=== PATIENT | female | born 1985 | race Caucasian/White ===

== ENCOUNTER 2018-09-14 21:55 | Emergency (ER) | payer OTHER ==
[2018-09-14 22:01] VITALS: BP 124/76; PULSE 92; TEMP 98; BMI 24.7
--- NOTE | 2018-09-14 22:38 | PDOC ---
History of Present Illness - General Chief Complaint: Nausea/Vomiting Stated Complaint: NAUSEA/VOMITING Time Seen by Provider: 09/14/18 22:27 - History of Present Illness Initial Comments: 09/14/18 22:36 33-year-old female presents for evaluation of vomiting and rash 3 days no fever no dysuria no back pain no abdominal pain Past History - Past Medical History Allergies/Adverse Reactions: Allergies Allergy/AdvReac Type Severity Reaction Status Date / Time amoxicillin Allergy Verified 09/14/18 22:02 erythromycin base Allergy Verified 09/14/18 22:02 Penicillins Allergy Verified 09/14/18 22:02 Home Medications: Ambulatory Orders NK [No Known Home Medication] 09/14/18 Asthma: Yes COPD: No - Suicide/Smoking/Psychosocial Hx Smoking History: Current every day smoker Number of Cigarettes Smoked Daily: 20 Information on smoking cessation initiated: No Review of Systems - Review of Systems Constitutional: No: Chills, Fever, Malaise, Night Sweats ABD/GI: Yes: Nausea, Vomiting Integumentary: Yes: Pruritus, Rash *Physical Exam - Vital Signs Last Vital Signs Temp Pulse Resp BP Pulse Ox 98 F 92 H 18 124/76 100 09/14/18 21:58 09/14/18 21:58 09/14/18 21:58 09/14/18 21:58 09/14/18 21:58 - Physical Exam Comments: 09/14/18 22:36 HEAD: NC/AT EYES: Conjuntiva clear Ears: Canals and TM's normal NOSE: No d/c THROAT: Moist mucous membrances, oral pharanx clear, uvula midline NECK: Supple without adenopathy CARDIAC: S1 S2 LUNGS: CTA Full and Equal breath sounds ABDOMEN: Soft NT ND MS: Full ROM in all joints without edema NEUROLOGIC: No gross sensory or motor deficits, NVID SKIN: Normal color and temperature is a diffuse vesicular rash across her back and legs her abdomen was not inspected. There is no indication of secondary infection the vesicles are closed some of the vesicles have the tops picked off Medical Decision Making - Medical Decision Making 09/14/18 22:37 Patient states she has been staying in a hotel these appear to be bedbug bites. However she denies bedbugs at this hotel she has changes rooms multiple times. And her partner does not have any similar rash I will do preliminary lab work and have her transferred to the main emergency room for workup of her vomiting *DC/Admit/Observation/Transfer Diagnosis at time of Disposition: Rash, Vomiting - Referrals - Patient Instructions - Post Discharge Activity
[2018-09-14 23:01] LABS: URINE APPEARANCE CLEAR; URINE BILIRUBIN NEGATIVE (<2.0 mg/dL); URINE COLOR LTYELLOW; URINE GLUCOSE (UA) NEGATIVE (NEGATIVE); URINE KETONE NEGATIVE (NEGATIVE); URINE LEUK ESTERASE NEGATIVE (NEGATIVE); URINE NITRITE NEGATIVE (NEGATIVE); URINE PROTEIN NEGATIVE (NEGATIVE); URINE UROBILINOGEN NEGATIVE mg/dL (0.2-1.0)
[2018-09-14 23:03] LABS: HCG,QUALITATIVE URINE Negative
[2018-09-14 23:06] LABS: BASO % 0.5 % (0-2.0); EOS % 2.2 % (0-4.5); HEMATOCRIT 39.4 % (32.4-45.2); HEMOGLOBIN 13.5 GM/dL (10.7-15.3); LYMPH % 23.7 % (8-40); MCH 31.2 pg (25.7-33.7); MCHC 34.3 g/dl (32.0-36.0); MEAN CELL VOLUME 91.1 fl (80-96); MEAN PLT VOLUME 9.3 fl (7.5-11.1); MONO % 7.1 % (3.8-10.2); NEUT % 66.5 % (42.8-82.8); PLATELET COUNT 200 K/MM3 (134-434); RBC 4.32 M/mm3 (3.60-5.2); RDW 14.2 % (11.6-15.6); WHITE BLOOD COUNT 8.6 K/mm3 (4.0-10.0)
[2018-09-14 23:26] LABS: ALK PHOS 69 U/L (45-117); ANION GAP 7 MMOL/L (8-16); BILIRUBIN,TOTAL 0.2 mg/dL (0.2-1); BLOOD UREA NITROGEN 13 mg/dL (7-18); CALCIUM 9.4 mg/dL (8.5-10.1); CHLORIDE 95 mmol/L (98-107); CO2 33 mmol/L (21-32); CREATININE 0.9 mg/dL (0.55-1.3); GLUCOSE,RANDOM 99 mg/dL (74-106); LIPASE 91 U/L (73-393); POTASSIUM 3.4 mmol/L (3.5-5.1); SGOT/AST 24 U/L (15-37); SGPT/ALT 37 U/L (13-61); SODIUM 136 mmol/L (136-145); TOT PROT 7.7 g/dl (6.4-8.2)
[2018-09-14] MEDS ORDERED: diphenhydrAMINE HCL 25 MG CAPSULE (FP) PO ONE (23:30)
[2018-09-15] MEDS ORDERED: diphenhydrAMINE HCL 25 MG CAPSULE (FP) PO ONE (00:07)
--- NOTE | 2018-09-15 01:08 | PDOC ---
*Physical Exam - Vital Signs Last Vital Signs Temp Pulse Resp BP Pulse Ox 98 F 92 H 18 124/76 100 09/14/18 21:58 09/14/18 21:58 09/14/18 21:58 09/14/18 21:58 09/14/18 21:58 ED Treatment Course - LABORATORY CBC & Chemistry Diagram: 09/14/18 22:50 09/14/18 22:50 - ADDITIONAL ORDERS Additional order review: Laboratory Results 09/14/18 09/14/18 09/14/18 23:02 22:50 22:50 Sodium 136 Potassium 3.4 L Chloride 95 L Carbon Dioxide 33 H Anion Gap 7 L BUN 13 Creatinine 0.9 Creat Clearance w eGFR > 60 Random Glucose 99 Calcium 9.4 Total Bilirubin 0.2 AST 24 ALT 37 Alkaline Phosphatase 69 Total Protein 7.7 Albumin 4.0 Lipase 91 Serum , Qual Negative Urine Color Ltyellow Urine Appearance Clear Urine pH 6.0 Ur Specific [place] 1.013 Urine Protein Negative Urine Glucose (UA) Negative Urine Ketones Negative Urine Blood Negative Urine Nitrite Negative Urine Bilirubin Negative Urine Urobilinogen Negative Ur Leukocyte Esterase Negative Urine HCG, Qual Negative 09/14/18 22:50 RBC 4.32 MCV 91.1 MCHC 34.3 RDW 14.2 MPV 9.3 Neutrophils % 66.5 Lymphocytes % 23.7 Monocytes % 7.1 Eosinophils % 2.2 Basophils % 0.5 - Medications Given in the ED: ED Medications Discontinued Medications Generic Name Dose Route Start Last Admin Trade Name Freq PRN Reason Stop Dose Admin Diphenhydramine HCl 50 mg 09/14/18 23:30 09/15/18 00:55 Benadryl - PO 09/14/18 23:31 Not Given ONCE ONE Medical Decision Making - Medical Decision Making Patient signed out to me by SURINDER Phelps. Patient was pending labs which were unremarkable other than mild hypokalemia (K of 3.4) Rash was discussed with Dr. Diana; rash did not appear infectious in origin Patient was to be given Benadryl and referred to dermatology However, was later notified by charge nurse Antonia that patient was no longer in the room (she had no IV in place) and had walked out. 09/15/18 01:05 *DC/Admit/Observation/Transfer Diagnosis at time of Disposition: Rash Vomiting Qualifiers: Vomiting type: unspecified Vomiting Intractability: non-intractable Nausea presence: with nausea Qualified Code(s): R11.2 - Nausea with vomiting, unspecified - Discharge Dispostion Disposition: ELOPED Condition at time of disposition: Stable - Referrals - Patient Instructions - Post Discharge Activity
== END 2018-09-15 00:58 | disposition left against medical advice (07) ==
LOC: JER 21:55 → JERFT 21:55 → JER 09-15 00:58
DX: R21 Rash and other nonspecific skin eruption (principal); R11.2 Nausea with vomiting, unspecified; E87.6 Hypokalemia; F17.210 Nicotine dependence, cigarettes, uncomplicated; Z87.09 Personal history of other diseases of the respiratory system; Z88.0 Allergy status to penicillin; Z88.1 Allergy status to other antibiotic agents
CPT/HCPCS: 36415; 80053; 81003; 83690; 84703; 85025; 99281-25